=== PATIENT | female | born 1935 | race Caucasian/White ===

== ENCOUNTER → 2016-12-23 | Outpatient (CLI) | payer BC ==
[~2016-12-23] MED LIST: AMOX1TAB43 PO; CIME1TAB7 PO; LEVO50TA6 PO; OXYC-57 PO
--- NOTE | 2016-12-23 15:49 | DIAGNOSTIC IMAGING REPORT ---
FUSION CT SINUSES W/O CLINICAL HISTORY: R05 [id number] Chronic eublyslqsI16.2 Deviated nasal [id number] COMPARISON STUDY: No previous studies for comparison. FINDINGS: There is bony overgrowth of the anterior medial aspects of the mandible. There is moderate mucosal disease within both maxillary sinuses. The mastoid air cells are clear. The middle ear cavities are well aerated. There is moderate mucosal thickening within the sphenoid. Ethmoid sinuses are nearly completely opacified. The frontal sinuses are hypoplastic. The ostial and infundibular portions of both ostiomeatal units are occluded by soft tissue. The anterior ethmoid recesses are protected. The olfactory fossa is measured 4 mm in depth. The frontoethmoidal recesses are occluded. The lamina papyracea are intact. IMPRESSION: Extensive pansinus disease. The ostiomeatal units are occluded bilaterally. Electronically signed by: Silas Bennett M.D. 12/23/2016 3:47 PM Dictated Date/Time: 12/23/2016 3:40 PM
== END | disposition home or self-care (01) ==
LOC: C.CTS 14:49
PROVIDERS: ATTEND Hospitalist
DX: J34.2 Deviated nasal septum (principal); J32.4 Chronic pansinusitis; J34.3 Hypertrophy of nasal turbinates; R51 Headache; R05 Cough

== ENCOUNTER → 2016-12-28 | Outpatient (CLI) | payer BC ==
[2016-12-28 10:59] LABS: BASO % 1.1 %; BASO ABS # 0.08 K/uL (0-0.2); COMPLETE YES; HEMATOCRIT 44.6 % (37-47); IG% 0.1 %; LYMPH ABS # 2.17 K/uL (1.2-3.4); MEAN CELL VOLUME 92.5 fL (80-100); MEAN CORPUSCULAR HEMOGLOBIN 30.5 pg (25-34); MONO % 6.5 %; NEUT % 40.3 %; PLATELET COUNT 179 K/uL (130-400); RED BLOOD COUNT 4.82 M/uL (4.2-5.4); WHITE BLOOD COUNT 7.24 K/uL (4.8-10.8)
[2016-12-28 11:06] LABS: INR 0.9 (0.9-1.1)
== END | disposition home or self-care (01) ==
LOC: C.CPL 09:31
DX: Z01.818 Encounter for other preprocedural examination (principal)

== ENCOUNTER → 2017-01-08 | Day surgery (SDC) | payer BC ==
[2017-01-07 11:53] VITALS: Ht 160 cm; Wt 61.4 kg
[~2017-01-08] VITALS: Ht 160 cm; Wt 61.4 kg
[~2017-01-08] MED LIST changes: +ATROPINE SULFATE 0.1 MG/ML 5ML SYR IV PRN; +CEFAZOLIN 2000 MG/60 ML D5W IV SCH; +DEXAMETHASONE SOD INJ 4 MG/ML VIAL IV PRN; +DEXAMETHASONE SOD INJ 4 MG/ML VIAL ONE; +EpHEDrine SULFATE 50MG/5ML SYR ONE; +EpHEDrine SULFATE INJ 50 MG/ML AMP IV PRN; +EpINEphrine INJ 1MG/ML AMP 1 MG/ML AMP ONE; +FENTANYL CITRATE INJ 50 MCG/1 ML 2 ML VIAL IV PRN; +FENTANYL CITRATE INJ 50 MCG/1 ML 2 ML VIAL ONE; +GLYCOPYRROLATE INJ 0.2 MG/ML VIAL ONE; +HYDROCODONE/ACETAMOPHEN 5/325MG TAB PO PRN; +KETOROLAC TROMETHAMINE 30 MG/ML VIAL IV. PRN; +LABETALOL HCL IV 5 MG/ML 20ML IV PRN; +LACTATED RINGER'S 1000ML 1,000 ML IV SCH; +LIDOCAINE 4% MPF SOAK 5 ML = 1 DOSE TOP ONE; +LIDOCAINE HCL 2% 2 ML VIAL (20MG/ML) ONE; +LIDOCAINE/EPINEPHRINE 1% INJ 50 ML VIAL ONE; +METOCLOPRAMIDE HCL INJ 5 MG/ML 2 ML VIAL IV PRN; +MoRPHine SULFATE 10 MG/ML CARP/VIAL IV PRN; +NEOSTIGMINE METHYLSULFATE 5 MG/5 ML SYR ONE; +ONDANSETRON INJ 2 MG/ML 2 ML VIAL IV PRN; +ONDANSETRON INJ 2 MG/ML 2 ML VIAL ONE; -OXYC-57 PO; +OXYMETAZOLINE HCL 0.05% NA SPR 15 ML BTL PRN; +OXYMETAZOLINE HCL 0.05% NA SPR 15 ML BTL SCH; +PHENYLEPHRINE 100MCG/ML 5ML SYR IV PRN; +PROPOFOL IV EMULSION 10 MG/ML 20 ML VIAL IV ONE
--- NOTE | 2017-01-08 10:09 | History & Physical Bridge - [place] ---
H&P Re-Evaluation Bridge Note: I have examined the patient, reviewed the History & Physical and in the interval since the performance of the History & Physical I have noted the following changes of clinical significance: No changes noted
--- NOTE | 2017-01-08 11:49 | [facility] Operative Report ---
Operative Report Operative Date Jan 08, 2017. Pre-Operative Diagnosis Chronic Sinusitis, Deviated Nasal Septum, Hypertrophy of Nasal Turbinates Post-Operative Diagnosis Same Procedure(s) Performed Septoplasty, Bilateral Turbinate Outfracture And Reduction, Bilateral Maxillary Antrostomies, Bilateral Ethmoidectomies, Bilateral Sphenoidectomies, And Bilateral Saroj Bullosa Resection Surgeon Dr. Bejarano Service Consultant Surgeon(s) None Estimated Blood Loss 25 mL Findings 1. SEVERE POLYPOSIS INVOLVING B ETHMOID SINUSES 2. B SAROJ BULLOSA 3. L DNS W/ POSTERIOR SEPTAL SPUR 4. POLYPOID MUCOSAL THICKENING B MAXILLARY AND SPHENOID SINUSES Specimens None I attest to the content of the Intraoperative Record and any orders documented therein. Any exceptions are noted below.
--- NOTE | 2017-01-08 11:50 | Discharge Instructions ---
Discharge Instructions Admission Reason for Admission: Chronic Sinusitis, Deviated Nasal Septum, Hypertro Discharge Discharge Diagnosis / Problem: SAME Discharge Goals Goal(s): Improve function Activity Recommendations Activity Limitations: as noted below LIGHT ACTIVITY FOR 2WEEKS; NO NOSE BLOWING FOR 2WEEKS; NO DRIVING WHILE ON [place] . Current Hospital Diet Patient's current hospital diet: Discharge Diet Recommended Diet: Regular Diet Procedures Procedures Performed: Septoplasty, Bilateral Turbinate Outfracture And Reduction, Bilateral Maxillary Antrostomies, Bilateral Ethmoidectomies, Bilateral Sphenoidectomies, And Bilateral Jocelyn Bullosa Resection Pending Studies Studies pending at discharge: no Medical Emergencies . Who to Call and When: Medical Emergencies: If at any time you feel your situation is an emergency, please call 911 immediately. . Non-Emergent Contact Non-Emergency issues call your: Surgeon . . "Provider Documentation" section prepared by Bacilio Bejarano. VTE Core Measure Inpt VTE Proph given/why not?: SCD's
[2017-01-08 12:25] VITALS: BP 139/81; PULSE 86; TEMP 36.4; O2SAT 94
--- NOTE | 2017-01-08 12:37 | OPERATIVE REPORT ---
DATE OF OPERATION: 01/08/2017 PREOPERATIVE DIAGNOSES: 1. Chronic polypoid rhinosinusitis. 2. Left septal deviation. 3. Bilateral inferior turbinate hypertrophy. 4. Bilateral niyah bullosa. POSTOPERATIVE DIAGNOSES: 1. Chronic polypoid rhinosinusitis. 2. Left septal deviation. 3. Bilateral inferior turbinate hypertrophy. 4. Bilateral niyah bullosa. PROCEDURES: Ge[employer] Fusion image-guided bilateral endoscopic sinus surgery consisting of: 1. Bilateral endoscopic niyah bullosa resection. 2. Bilateral maxillary antrostomies. 3. Bilateral complete ethmoidectomies. 4. Bilateral sphenoidotomies. 5. Septoplasty. 6. Bilateral inferior turbinate outfracture and turbinoplasty. SURGEON: Dr. Bejarano. ANESTHESIA: General endotracheal. ESTIMATED BLOOD LOSS: 25 mL FINDINGS: 1. Severe polypoid degeneration of the left greater than right middle turbinates with niyah bullosa. 2. Severe polyposis involving the bilateral ethmoid sinuses. 3. Polypoid mucosal thickening involving the bilateral maxillary and sphenoid sinuses. 4. Left septal deviation with a posterior septal spur. 5. Bilateral inferior turbinate hypertrophy. SPECIMENS: None. COMPLICATIONS: None. INDICATIONS FOR THE PROCEDURE: The patient is a very pleasant 81-year-old female with a history of chronic polypoid rhinosinusitis which has been unresponsive to maximal medical therapy including systemic steroids and antibiotics. She underwent in-office balloon sinuplasty by Dr. Colby in the past which did not help her symptomatology. A post-treatment CT scan showed pansinusitis with niyah bullosa, left septal deviation, and bilateral inferior turbinate hypertrophy. The patient presents for the above-mentioned procedures on an outpatient elective basis. DETAILS OF PROCEDURE: After informed consent had been obtained from the patient, the patient was wheeled to the operating room and placed on the operating room table in supine position. Monitors were placed, and after induction of general endotracheal anesthesia, the patient was prepped in the usual fashion for image-guided bilateral endoscopic sinus surgery. The [employer] Fusion headset was placed over the forehead and was registered, calibrated, and verified and used for the majority of the case including the sphenoid portions especially. Lidocaine and epinephrine pledgets were placed in the bilateral nasal cavities and pressure applied. The left pledgets were first removed. 1% lidocaine with 1:100,000 epinephrine was used to inject the left middle turbinate and uncinate process. A lidocaine and epinephrine pledget was then placed into the left middle meatus. The right side was then addressed in a similar fashion. The left-sided pledgets were removed. A sickle knife was used to incise the middle turbinate longitudinally and the lateral half of the middle turbinate was removed using straight Jose Luis-Cut forceps and powered instrumentation. Of note, there was severe polypoid degeneration of the left middle turbinate and the majority of it was removed because of the polypoid degeneration. An uncinectomy was then performed using a [place] elevator, straight Jose Luis-Cut forceps and powered instrumentation. The natural ostium of the left maxillary sinus was identified and this was enlarged anteriorly, inferiorly and posteriorly using straight Jose Luis-Cut forceps, backbiting forceps, and powered instrumentation. A complete ethmoidectomy was then performed using powered instrumentation. A left sphenoidotomy was then performed via transnasal approach, and the medial and inferior aspect of the sphenoid sinus was enlarged using powered instrumentation. Of note, there was severe polyposis involving the ethmoid sinus and polypoid mucosal thickening involving the left maxillary and sphenoid sinuses. The right side was then addressed in a similar fashion with similar intraoperative findings except a lot of the right middle turbinate was able to be spared due to the less severe polypoid degeneration of this tissue. Septum was then injected with 1% lidocaine with 1:100,000 epinephrine. A #15 scalpel was then used to make a left [place] incision through which the left side of mucoperichondrial and mucoperiosteal flap was elevated. A #15 scalpel was then used to incise the quadrangular cartilage with care to preserve a 1.5 cm dorsal and caudal strut. On the right side, mucoperichondrial and mucoperiosteal flap was elevated through the cartilaginous incision. A Linette swivel knife was then used to remove the deviated portion of the quadrangular cartilage. Rebeca forceps was then used to remove a large bony septal spur which was impinging on the airway on the left hand side posteriorly and inferiorly. After this had been removed, the septal cavity was suctioned. The left [place] incision was closed with several simple interrupted 4-0 chromic sutures. A 4-0 plain gut suture on a [place] needle was then used to perform a quilting stitch of the mucoperichondrial and mucoperiosteal flaps bilaterally to help prevent septal hematoma. A Herrera elevator was then used to infracture and subsequently outfracture the inferior turbinates bilaterally. These were injected with 1% lidocaine with 1:100,000 epinephrine. A 2.0 mm turbinate blade using powered instrumentation was then used to perform bilateral inferior turbinoplasties in a submucosal fashion. The sinonasal cavities were then suctioned. MeroGel was then placed in the bilateral ethmoid cavities. Nasal cavities and nasopharynx were then suctioned. An orogastric tube was placed, and the stomach was suctioned free of air and stomach contents. This marked the end of the case. The patient tolerated the procedure well and there were no apparent complications. The patient was extubated and transferred to recovery room in stable condition. I attest to the content of the Intraoperative Record and any orders documented therein. Any exceptio ns are noted below.
--- NOTE | 2017-01-08 13:10 | Anesthesia Progress Nt - [facility] ---
Anesthesia Post Op Note Date & Time Jan 08, 2017 at 13:10 Vital Signs Pain Intensity: 3.0 Vital Signs Past 12 Hours Date Time Temp Pulse Resp B/P Pulse Ox O2 Delivery O2 Flow Rate FiO2 01/08/17 12:25 36.4 86 139/81 94 Room Air 01/08/17 12:14 36.4 84 26 95 01/08/17 12:14 80 20 94 01/08/17 12:13 135/73 01/08/17 12:09 82 20 01/08/17 12:09 82 20 97 01/08/17 12:08 137/72 01/08/17 12:03 138/69 01/08/17 11:59 79 17 98 01/08/17 11:59 78 13 98 01/08/17 11:58 126/87 01/08/17 11:54 81 23 98 01/08/17 11:54 81 23 01/08/17 11:53 133/63 01/08/17 11:48 135/68 01/08/17 11:45 36.2 99 16 157/77 98 Humidified Oxygen 6 Mask 01/08/17 11:44 83 6 98 01/08/17 11:44 82 12 98 01/08/17 08:53 36.7 68 22 150/89 98 Room Air Notes Mental Status: alert / awake / arousable, participated in evaluation Pt Amnestic to Procedure: Yes Nausea / Vomiting: adequately controlled Pain: adequately controlled Airway Patency, RR, SpO2: stable & adequate BP & HR: stable & adequate Hydration State: stable & adequate Anesthetic Complications: no major complications apparent
== END | disposition home or self-care (01) ==
LOC: X.SURG 08:30
DX: J32.4 Chronic pansinusitis (principal); J33.0 Polyp of nasal cavity; J34.2 Deviated nasal septum; J34.3 Hypertrophy of nasal turbinates; R05 Cough; E03.9 Hypothyroidism, unspecified; I10 Essential (primary) hypertension

== ENCOUNTER → 2017-03-22 | Outpatient (CLI) | payer BC ==
[~2017-03-22] MED LIST changes: -ATROPINE SULFATE 0.1 MG/ML 5ML SYR IV PRN; -CEFAZOLIN 2000 MG/60 ML D5W IV SCH; -DEXAMETHASONE SOD INJ 4 MG/ML VIAL IV PRN; -DEXAMETHASONE SOD INJ 4 MG/ML VIAL ONE; -EpHEDrine SULFATE 50MG/5ML SYR ONE; -EpHEDrine SULFATE INJ 50 MG/ML AMP IV PRN; -EpINEphrine INJ 1MG/ML AMP 1 MG/ML AMP ONE; -FENTANYL CITRATE INJ 50 MCG/1 ML 2 ML VIAL IV PRN; -FENTANYL CITRATE INJ 50 MCG/1 ML 2 ML VIAL ONE; -GLYCOPYRROLATE INJ 0.2 MG/ML VIAL ONE; -HYDROCODONE/ACETAMOPHEN 5/325MG TAB PO PRN; -KETOROLAC TROMETHAMINE 30 MG/ML VIAL IV. PRN; -LABETALOL HCL IV 5 MG/ML 20ML IV PRN; -LACTATED RINGER'S 1000ML 1,000 ML IV SCH; -LIDOCAINE 4% MPF SOAK 5 ML = 1 DOSE TOP ONE; -LIDOCAINE HCL 2% 2 ML VIAL (20MG/ML) ONE; -LIDOCAINE/EPINEPHRINE 1% INJ 50 ML VIAL ONE; -METOCLOPRAMIDE HCL INJ 5 MG/ML 2 ML VIAL IV PRN; -MoRPHine SULFATE 10 MG/ML CARP/VIAL IV PRN; -NEOSTIGMINE METHYLSULFATE 5 MG/5 ML SYR ONE; -ONDANSETRON INJ 2 MG/ML 2 ML VIAL IV PRN; -ONDANSETRON INJ 2 MG/ML 2 ML VIAL ONE; -OXYMETAZOLINE HCL 0.05% NA SPR 15 ML BTL PRN; -OXYMETAZOLINE HCL 0.05% NA SPR 15 ML BTL SCH; -PHENYLEPHRINE 100MCG/ML 5ML SYR IV PRN; -PROPOFOL IV EMULSION 10 MG/ML 20 ML VIAL IV ONE
[2017-03-22 13:04] LABS: LYME DISEASE AB IGG NEG (NEG); LYME DISEASE AB IGM NEG (NEG)
== END | disposition home or self-care (01) ==
LOC: C.LAB1850 08:13
DX: J32.9 Chronic sinusitis, unspecified (principal)

== ENCOUNTER → 2017-05-06 | Outpatient (CLI) | payer BC ==
[2017-05-06 13:58] LABS: BLOOD UREA NITROGEN 21 mg/dl (7-18); BUN/CREATININE RATIO 25.1 (10-20); CALCIUM 8.6 mg/dl (8.5-10.1); CARBON DIOXIDE 29 mmol/L (21-32); CHLORIDE 109 mmol/L (98-107); CREATININE 0.84 mg/dl (0.60-1.20); GLUCOSE 83 mg/dl (70-99); POTASSIUM 3.7 mmol/L (3.5-5.1); SODIUM 144 mmol/L (136-145)
== END | disposition home or self-care (01) ==
LOC: C.LABBC 10:19
PROVIDERS: ATTEND Family Medicine
DX: I10 Essential (primary) hypertension (principal)

== ENCOUNTER → 2018-02-17 | Outpatient (CLI) | payer BC ==
[2018-02-17 11:26] LABS: CREATININE 0.86 mg/dl (0.60-1.20)
== END | disposition home or self-care (01) ==
LOC: C.LABBC 08:04
PROVIDERS: ATTEND Dermatology
DX: C44.02 Squamous cell carcinoma of skin of lip (principal)

== ENCOUNTER → 2018-02-18 | Outpatient (CLI) | payer BC ==
--- NOTE | 2018-02-18 08:54 | DIAGNOSTIC IMAGING REPORT ---
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 The patient was then scanned in a dynamic helical fashion during intravenous administration of 93 cc of Optiray 320. A dose lowering technique was utilized adhering to the principles of ALARA. COMPARISON STUDY: None. FINDINGS: The visualized portions of the lung apices reveal no pulmonary masses. No thyroid masses are visualized. No salivary gland masses are visualized. Visualized portions intracranial contents are unremarkable. No orbital masses are visualized. There is paranasal sinus disease with mucosal thickening involving the sphenoid ethmoid and maxillary sinuses. There is significant artifact in the region the maxilla and mandible secondary to dental amalgam artifact. No mucosal space masses are visualized. There is no pathologic adenopathy. There is an 8 mm left supraclavicular lymph node, but this is not pathologically enlarged by size criteria. No necrotic nodes are evident. IMPRESSION: 1. Evaluation of the lips is severely limited due to dental amalgam artifact. 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 No evidence of pathologic adenopathy. 3. Paranasal sinus disease Electronically signed by: Silas Bennett M.D. 02/18/2018 8:52 AM Dictated Date/Time: 02/18/2018 8:46 AM
== END | disposition home or self-care (01) ==
LOC: C.CTS 08:14
PROVIDERS: ATTEND Dermatology
DX: C44.02 Squamous cell carcinoma of skin of lip (principal); J32.9 Chronic sinusitis, unspecified